=== PATIENT | female | born 1960 | race Hispanic/Latino ===

== ENCOUNTER → 2016-05-25 | Outpatient (CLI) | payer OTHER | LOC: LAB.O 09:48 | PROVIDERS: ATTEND Nurse Practitioner Family | DX: I10 Essential (primary) hypertension (principal); R50.9 Fever, unspecified; Z13.220 Encounter for screening for lipoid disorders; Z68.41 Body mass index [BMI] 40.0-44.9, adult ==

== ENCOUNTER → 2017-10-12 | Outpatient (CLI) | payer BC | LOC: YCFC.O 09:07 | PROVIDERS: ATTEND Nurse Practitioner Family | DX: I10 Essential (primary) hypertension (principal); E78.2 Mixed hyperlipidemia ==

== ENCOUNTER → 2019-10-17 | Outpatient (CLI) | payer OTHER ==
--- NOTE | 2019-10-17 16:19 | MRI ---
EXAM DESCRIPTION: Brain w/o Contrast: MRI. CLINICAL HISTORY: NEW ONSET OF HEADACHES AFTER AGE 50 COMPARISON: None. TECHNIQUE: Multiplanar, high-field MRI unit, multiple diffusion sequences, multiple conventional sequences without contrast. FINDINGS: Minimally hyperintense FLAIR and T2-weighted signal in the hughes radiata of the periventricular white matter abutting the anterior and posterior lateral ventricles and also in the bilateral centrum semiovale white matter. No significant involvement of the subcortical white matter more than the temporal lobes. No hemorrhage, no cerebral edema, no midline shift.. Normal signal in the bilateral basal ganglia. Normal signal in the brainstem and cerebellar hemispheres. Small nodular densities in the region of the right transverse sinus may represent an arachnoid villi. Bright on T2-weighted imaging and hypointense on T1 and FLAIR imaging with no diffusion restriction. More likely to be extra-axial than intra-axial.. Concordance of the diffusion and non-diffusion sequences with no diffusion restriction. Cortical sulci, ventricles, and other CSF spaces, and the subdural spaces are normally configured for patients age. No effacement or displacement. No midline shift. No extra-axial hemorrhage. Normal flow signal void in the major vessels of the kenaitze Brandt, and the venous sinuses. IACs are symmetric bilaterally. Normal signal in the bilateral mastoid air cells. No mass effect in the bilateral cerebellopontine angles. Pituitary gland occupies most of the sella. Base of the cerebellar tonsils is at the level the foramen magnum. Normal signal in the bilateral paranasal sinuses. The bony calvarium is intact. IMPRESSION: 1. Minimal white matter changes in the periventricular white matter/hughes radiata abutting the upper lateral ventricles and also bilateral centrum semiovale. Symmetric. No diffusion restriction. No hemorrhage, mass effect. Sparing of the temporal lobe periventricular white matter. 2. Possible prominent arachnoid villi in the CSF space abutting the inferior posterior right cerebellar hemisphere. No hydrocephalus. Recommend follow-up MRI scan with gadolinium IV contrast, and emphasis on the posterior fossa. No definite adjacent intra-axial abnormalities in the posterior right cerebellar hemisphere. Electronically signed by: René Nunes MD 10/17/2019 4:18 PM CDT
== END ==
LOC: MRI 09:50
PROVIDERS: ATTEND Psychiatry & Neurology Neurology
DX: R51 Headache (principal); R90.82 White matter disease, unspecified; G93.9 Disorder of brain, unspecified